=== PATIENT | male | born 1960 | race Caucasian/White ===

== ENCOUNTER 2017-08-09 05:28 | Day surgery (SDC) | payer BC, OTHER ==
[~2017-08-09] VITALS: Ht 172.7 cm; Wt 75.7 kg
--- NOTE | ~2017-08-09 | O ---
[facility] [place] [address] OPERATIVE REPORT Name: EDWIN WADE DAYLIN Room #: [facility] M.R.#: [id number] Admission: 08/09/17 Attend Phys: Skylar Alonzo, Discharge: 08/09/17 Date of : 62 Report #: [id number] THIS REPORT FOR: //name// CC: Skylar Alonzo DATE OF SERVICE: 08/09/2017 PREOPERATIVE DIAGNOSIS: Left long finger probable zone 1 extensor tendon transection. POSTOPERATIVE DIAGNOSIS: Left long finger probable zone 1 extensor tendon transection. PROCEDURE PERFORMED: Left long finger wound exploration with zone 1 extensor tendon repair and DIP joint pinning. SURGEON: Skylar Alonzo M.D. ANESTHESIA: General mask anesthesia. ESTIMATED BLOOD LOSS: 1 mL. TOURNIQUET TIME: Approximately 30 minutes, please see intraoperative record. COMPLICATIONS: None. CONDITION: Stable. DISPOSITION: Recovery room. INDICATIONS: The patient is a 56-year-old male with the above-mentioned diagnosis. The risks, benefits, alternatives and complications were discussed, limited to stiffness, infection, damage to blood vessels or nerves, wound healing problems, tendon rupture and hardware problems. Informed consent was obtained. The typical procedure with postoperative course were discussed, including the need for larger incisions to expose the tendon for repair. We also discussed probable hardware removal if a K-wire was utilized. The correct extremity was identified and labeled by myself after verbal confirmation of the patient as well as the visual confirmation and signed informed consent. DESCRIPTION OF PROCEDURE: The patient was brought back to the operating room and placed on the operating table in supine position. He received preoperative antibiotics. Tourniquet was placed over padding on the patient's left upper extremity. Left upper extremity was sterilely prepped and draped in the usual fashion and final timeout was taken to verify the correct patient, operative procedure and operative site and all concurred. The arm was elevated, [facility] [address] [place] [address] OPERATIVE REPORT Name: EDWIN WADE DAYLIN Room #: [facility].#: [id number] Admission: 08/09/17 Attend Phys: Skylar Alonzo, Discharge: 08/09/17 Date of : 62 Report #: [id number] exsanguinated and the tourniquet was inflated. The prior wound was opened. The tendon was evaluated and it looked to be transected and so, the wound was extended both proximally and distally in order to facilitate exposure. Ninety percent of the tendon was completely transected at zone 1. It was mobilized and I was able to oppose the ends quite nicely. The wound was sterilely irrigated. The tendon was then closed with a double-armed modified Lyons stitch as well as horizontal mattress stitch. The tendon was too thin to hold a locked cruciate stitch. Once the repair was performed, this was done with 3-0 Supramid, the DIP joint was flexed. There was no gapping and the repair looked to be appropriate. Because of the thin nature of the tendon at this level, a 0.065-inch K-wire was placed retrograde across the DIP joint in full extension to protect the repair for 4 weeks. The pin was buried beneath the skin. The skin was then closed with 4-0 nylon suture. Digital nerve block was done volarly with 5 mL of 0.25% Marcaine. The wound was dressed with Adaptic and sterile gauze. He was placed in a bulky compressive dressing and a volar slab finger splint. All fingers were pink, with brisk capillary refill at the closure of the case after deflation of the tourniquet. All sponge and needle counts were correct. The patient transferred to postoperative recovery room in stable condition. <ELECTRONICALLY SIGNED> By: Skylar Alonzo MD 09/06/17 1503 [id number] Skylar Alonzo MD /nt
[~2017-08-09 05:28] MED LIST: MULTIVITAMINS1 EAC7 PO; SIMVASTATIN40 MG PO
[2017-08-09 10:14] VITALS: BP 138/89
[2017-08-09 12:37] VITALS: BP 138/89
== END 2017-08-09 13:15 | disposition home or self-care (01) ==
LOC: TBA 05:28 → OR 05:28 → TBA 05:31 → OR 08:08
DX: S66.323A Laceration of extensor muscle, fascia and tendon of left middle finger at wrist and hand level, initial encounter (principal); E78.5 Hyperlipidemia, unspecified; Z98.890 Other specified postprocedural states; Z87.891 Personal history of nicotine dependence; Z79.899 Other long term (current) drug therapy; X58.XXXA Exposure to other specified factors, initial encounter; Y93.89 Activity, other specified; Y92.89 Other specified places as the place of occurrence of the external cause; Y99.8 Other external cause status
CPT/HCPCS: 50010; 50101; 50386; 51291; 51736; 57006; 57091; 62110; 62900; 70005